=== PATIENT | male | born 1995 | race Caucasian/White ===

== ENCOUNTER 2021-09-24 09:25 | Emergency (ER) | payer OTHER, SELFPAY ==
[~2021-09-24] VITALS: Ht 190.5 cm; Wt 115.1 kg
[2021-09-24] MEDS ORDERED: AUGMENTIN 875 MG TAB PO ONE (10:10)
[2021-09-24] MEDS ORDERED: NORCO, ANEXSIA 5/325MG TABLET (HYDROcodone/ACETAMINOPHEN) PO ONE (10:10)
[2021-09-24] MEDS ORDERED: AMOX875T2 PO (10:13)
[2021-09-24] MEDS ORDERED: IBUP80TA PO (10:13)
[2021-09-24] MEDS ORDERED: HYDR-3713 PO (10:13)
[2021-09-24 11:13] VITALS: BP 139/67
== END 2021-09-24 11:15 | disposition home or self-care (01) ==
LOC: M ED 09:25
DX: S02.5XXA Fracture of tooth (traumatic), initial encounter for closed fracture (principal); K02.9 Dental caries, unspecified; Y92.9 Unspecified place or not applicable; Y93.9 Activity, unspecified; Y99.9 Unspecified external cause status